=== PATIENT | male | born 1965 | race Caucasian/White ===

== ENCOUNTER → 2020-08-10 13:19 | Outpatient (CLI) | payer OTHER, SELFPAY ==
[2020-08-11 13:52] LABS: COVID19 Sendout Not Detected (Not Detect)
== END ==
PROVIDERS: Visit Provider Nurse Practitioner
DX: Z11.59 Encounter for screening for other viral diseases (principal)
CPT/HCPCS: 87635

== ENCOUNTER → 2020-08-13 10:24 | Outpatient (CLI) | payer OTHER, SELFPAY ==
--- NOTE | 2020-08-16 20:14 | DI.NM.S_ITS ---
DATE OF SERVICE: 08/13/2020 PROCEDURE: Pharmacological perfusion study. INDICATIONS: Shortness of breath with underlying diabetes mellitus, hypertension, hyperlipidemia. RADIOPHARMACEUTICAL: 27.4 millicurie technetium-99m Myoview IV was injected at stress and 24.9 millicurie technetium-99m Myoview IV was injected at rest. CARDIAC STRESS: The patient underwent IV Lexiscan perfusion study under the supervision of an attending staff using standard intravenous Lexiscan protocol. The patient remained hemodynamically stable. Slight nausea during Lexiscan infusion. No chest pain. Baseline EKG revealed sinus rhythm with poor R-wave progression and intermittent PVCs. During stress, patient continues to have intermittent PVCs without any ventricular tachycardia. No new significant ischemic changes. RAW DATA: There is increased subdiaphragmatic activity. GATED STUDY: Stress LV ejection fraction is 66 percent without any obvious wall motion abnormalities. Resting end-diastolic volume 171 mL. TID ratio 1.15, which is within normal limits. Lung/heart ratio 0.37, which is within normal limits. MYOCARDIAL PERFUSION: Stress supine, resting supine and stress prone images were compared to each other. It appears to be that there is a small to moderate size, moderately severe perfusion defect involving predominantly the mid anterior wall extending into the distal anterolateral wall suggestive of ischemia in the diagonal branch territory. 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 Overall preserved left ventricular function. Intermittent premature ventricular contractions without any ventricular tachycardia. Asia Conway - Wilver/anna doc#: [id number]/job#: [id number] dd: 08/16/2020 16:46:00 dt: 08/16/2020 20:06:00 DICTATING MD/COPIES TO: Tianna Ponce MD COPIES MNE: MAXIMILIANO;
== END ==
PROVIDERS: Referring Provider Internal Medicine Cardiovascular Disease; Visit Provider Internal Medicine Cardiovascular Disease
DX: R94.39 Abnormal result of other cardiovascular function study (principal); I49.3 Ventricular premature depolarization; R06.02 Shortness of breath; E11.9 Type 2 diabetes mellitus without complications; I10 Essential (primary) hypertension; E78.5 Hyperlipidemia, unspecified
CPT/HCPCS: 78452; 93017; A9502; J2785

== ENCOUNTER → 2020-08-16 07:50 | Outpatient (CLI) | payer OTHER, SELFPAY ==
--- NOTE | 2020-08-16 | DI.ECHO.S_ITS ---
[facility] +---------+ : : [address] : [place] [address] : : : : [id number] : : : : Phone: [phone]+ Echocardiogram Report + + :Name: BALAJI RODARTE Study Date: 08/16/2020 Height: 77 in : :[facility] Weight: 360 lb : : Gender: Male BSA: 2.9 m2 : :: 1965 Age: 55 yrs BP: 148/90 mmHg: :Reason For Study: SHORTNESS OF BREATH : :Ordering Physician: GEOVANY, : :EROS Performed By: Elizabeth Vail : :Referring: EROS ARMENTA : + + Interpretation Summary The left ventricle is normal in size. The ejection fraction is estimated to be 60-65%. The right ventricle is mild to moderately dilated. The right ventricular systolic function is normal. No significant valvular pathology seen. Procedure: A two-dimensional transthoracic echocardiogram with color flow and Doppler was performed. The study quality was technically difficult. A contrast injection of Definity was performed to improve assessment of LV function. There is no prior echocardiogram noted for this patient. The patient was in normal sinus rhythm during the exam. Left Ventricle: The left ventricle is normal in size. Left ventricular wall thickness is mildly increased. There is no thrombus. The ejection fraction is estimated to be 60-65%. There are no focal wall motion abnormalities. Diastolic parameters suggest a relaxation abnormality of the left ventricle, consistent with probable normal filling pressures. Right Ventricle: The right ventricle is mild to moderately dilated. The right ventricular systolic function is normal. Atria: The left atrium is mildly dilated. Right atrial size is normal. There is no Doppler evidence for an interatrial shunt. Mitral Valve: The mitral valve is normal in structure and function. There is trace mitral regurgitation. Aortic Valve: The aortic valve opens well. The aortic valve is not well visualized. There is no aortic valve stenosis. No aortic regurgitation is present. Tricuspid Valve: The tricuspid valve is not well visualized, but is grossly normal. There is trace tricuspid regurgitation. Pulmonary artery pressures cannot be estimated because of the lack of a measurable TR jet velocity. Pulmonic Valve: The pulmonic valve is not well visualized. There is no pulmonic valvular regurgitation. Great Vessels: The aortic root is normal size. The ascending aorta is at the upper limits of normal in size. The inferior vena cava was not well visualized. Pericardium/ Pleura There is no pericardial effusion. There is an anterior echo-free space consistent with a fat pad. There is no pleural effusion. MMode/2D Measurements & Calculations LVIDd: 5.7 cm LVOT diam: 2.4 cm LVIDs: 4.0 cm Ao root diam: 3.3 cm FS: 29.0 % asc Aorta Diam: 3.6 cm EPSS: 2.6 cm Ao Arch Diam (Prox Trans): 2.9 cm IVSd: 1.1 cm LVPWd: 1.1 cm LV stubbs. diameter/BSA (cm/m^2): 2.0 LV sys. diameter/BSA (cm/m^2): 1.4 LA A2 area: 26.3 cm2 RA long axis: 5.9 cm LA A4 area: 22.1 cm2 RA area: 17.0 cm2 LA length (vol): 5.3 cm RA vol: 41.6 ml LA vol: 93.3 ml RA : 14.5 ml/m2 LA vol index: 32.5 ml/m2 RVD1 (basal): 4.8 cm TAPSE: 2.6 cm Doppler Measurements & Calculations Ao V2 max: 163.4 cm/sec LVOT Max Davey: 102.6 cm/sec Ao V2 mean: 110.0 cm/sec LV V1 max P.2 mmHg Ao max P.7 mmHg LV V1 VTI: 19.1 cm Ao mean P.7 mmHg FRANCHESKA(I,D): 2.9 cm2 Ao V2 VTI: 29.3 cm FRANCHESKA(V,D): 2.7 cm2 sev ratio: 0.65 FRANCHESKA indexed to BSA (cm^2/m^2): 0.99 MV E max davey: 70.5 cm/sec PA V2 max: 77.7 cm/sec MV A max davey: 71.1 cm/sec PA V2 mean: 55.7 cm/sec MV E/A: 0.99 PA mean P.4 mmHg Med Peak E' Davey: 5.8 cm/sec PA pr(Accel): 29.3 mmHg E/E' med: 12.2 Lat Peak E' Davey: 6.7 cm/sec E/E' lat: 10.5 E/e' average: 11.3 MV dec time: 0.21 sec SV(LVOT): 83.7 ml Reading Physician:01:02 PM
== END ==
PROVIDERS: Referring Provider Internal Medicine Cardiovascular Disease; Visit Provider Internal Medicine Cardiovascular Disease
DX: R06.02 Shortness of breath (principal)
CPT/HCPCS: 93306; Q9957

== ENCOUNTER → 2022-12-22 13:53 | Outpatient (CLI) | payer OTHER, SELFPAY ==
[2022-12-25 10:17] LABS: Fecal Immunochemical Test Negative (Negative)
== END ==
PROVIDERS: PCP Internal Medicine; Referring Provider Internal Medicine; Visit Provider Internal Medicine
DX: Z12.11 Encounter for screening for malignant neoplasm of colon (principal)
CPT/HCPCS: 82274